=== PATIENT | male | born 1955 | race Hispanic/Latino ===

== ENCOUNTER 2024-01-26 06:04 | Day surgery (SDC) | payer OTHER ==
[2024-01-22 12:04] LABS: Absolute Eosinophils 0.1 K/uL (0-0.5); Absolute Lymphocytes (CBC) 1.3 K/uL (0.7-4.9); Absolute Monocytes 0.4 K/uL (0.1-1.3); Absolute Neutrophil 5.3 K/uL (1.8-8.0); Basophils % 0.5 % (0-1.3); Eosinophils % 2.1 % (0-4.4); Hematocrit 40.1 % (39.6-49.0); Hemoglobin 13.7 g/dL (13.6-17.9); Lymphocytes % 18.9 % (15.3-44.8); MCH 29.9 pg (27.0-35.0); MCHC 34.1 g/dL (32.0-36.0); MCV 87.7 fL (80-100); MPV 8.9 fL (7.6-11.3); Monocytes % 4.9 % (3.3-12.3); Neutrophils % 73.6 % (41.7-73.7); Platelets 264 thou/uL (152-406); RBC Red Blood Cell Count 4.57 M/uL (4.33-5.43); Red Cell Distribution Width 14.9 % (12.1-15.2)
[2024-01-22 12:17] LABS: Anion Gap 8.6 mEq/L (5.0-15.0); Potassium 3.6 mEq/L (3.5-5.1)
[2024-01-26] MEDS: Ringers Lactate 1,000 ML IV ONE (06:20)
[2024-01-26] MEDS ORDERED: FENTANYL CITR 100 MCG/2 ML ONE ×2 (06:40→07:26)
[2024-01-26] MEDS ORDERED: LIDOCAINE 2% MPF 5 ML VIAL ONE (06:40)
[2024-01-26] MEDS ORDERED: propofoL 200 MG/20 ML VIAL IV ONE (06:40)
[2024-01-26] MEDS ORDERED: ONDANSETRON 4 MG/2 ML VIAL ONE (06:40)
[2024-01-26] MEDS ORDERED: EPHEDRINE SULF 50 MG/ML VIAL ONE (07:05)
[2024-01-26] MEDS ORDERED: GLYCOPYRROLATE 0.2 MG/ML SYR ONE (07:07)
[2024-01-26] MEDS ORDERED: dexAMETHasone 10 MG/ML VIAL ONE (07:07)
[2024-01-26] MEDS: CEFAZOLIN SODIUM 1 GM/VIAL ONE (07:08)
--- NOTE | 2024-01-26 08:33 | OP ---
Date of Procedure: 01/26/2024 Surgeon: Freddie More MD Preoperative Diagnosis: Left knee pain with mechanical symptoms, probable meniscal tear or tears. Postoperative Diagnosis: Left knee pain with medial meniscal tear. Procedure: Left knee arthroscopy with debridement of medial meniscal tear. Estimated Blood Loss: Less than 10 cc. Complications: No complications. Specimens: No pathology specimens sent. Indications For Operation: Mr. Sierra is a 68-year-old gentleman who, unfortunately, is having pain a nd problems in his left knee for some time. These often occur intermittently, also associated with m echanical issues. He has an MRI, which demonstrates probable meniscal tear or tears, and risks, bene fits, and alternatives of different methods of treating of this have been discussed with him. He sta americo he understands things as presented and wishes to proceed. Description Of Procedure: The patient was taken to the operating room, placed in supine position, ge neral anesthesia obtained by Anesthesia staff. Following this, a well-padded tourniquet was placed o n superior left thigh. Left lower extremity was then prepped and draped in usual sterile fashion for procedure. After this, a standard superior medial arthroscopy portal was established with liberatio n of approximately 30 cc of rather normal-appearing synovial fluid. This was followed by placement o f inferolateral arthroscopy portal, which was done atraumatically with one pass. The knee was then s equentially examined including suprapatellar pouch, medial and lateral gutters, medial and lateral co mpartments as well as the notch at patellofemoral joint. Pertinent findings included tearing of the medial meniscus, which was immediately evident. After this, a needle was used to localize the positi on of the medial portal for best access and the probe was then placed within the knee, which demonstr ated that this meniscal tear does have an unstable flap, which was easily brought underneath the femo ral condyle. Combination of hand instruments and shaver then used to debride back this more less rad ial flap to a firm well contoured hook stable base. After this, the knee was again examined in all t he above areas and no further pathology seen, which was amenable to arthroscopic intervention and inf erior arthroscopic portals were stapled shut. Superior medial arthroscopy portal was used for placem ent of Marcaine with epinephrine. This was then stapled shut and the patient was then placed in a we ll-padded sterile dressing, awakened, and taken to recovery room in good condition. There were no co mplications. /ZAC Voice ID: [id number] Report ID: [id number]
[2024-01-26 10:35] VITALS: BP 145/97; TEMP 97.2; O2SAT 96
--- NOTE | 2024-01-26 17:42 | EKG ---
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
== END 2024-01-26 09:50 | disposition home or self-care (01) ==
LOC: OR 06:04
PROVIDERS: ATTEND Orthopaedic Surgery
PROC: 0SBD4ZZ Excision of Left Knee Joint, Percutaneous Endoscopic Approach (ICD-10-PCS; principal; 2024-01-26 07:00)
DX: S83.232D Complex tear of medial meniscus, current injury, left knee, subsequent encounter (principal)
CPT/HCPCS: 93005; 85025; 80048; 36415; 29881; J2704; J2001; J3010 ×2; J1100; J2405; J7120; J0690